=== PATIENT | male | born 1970 | race Caucasian/White ===

== ENCOUNTER 2016-11-09 12:10 | Emergency (ER) | payer OTHER ==
[~2016-11-09] VITALS: Ht 172.7 cm; Wt 100.0 kg
[~2016-11-09 12:10] MED LIST: PRIL20CA PO; ZOFR4TAB3 SL
[2016-11-09 12:12] VITALS: BP 138/80; PULSE 68; RESP 17; TEMP 97.6; O2SAT 98
--- NOTE | 2016-11-09 12:23 | PD ---
Physical Exam Time Seen by Provider: 12:19 Narrative 46yo M c/o LUQ abdomen pain after a choking and coughing episode about a week ago. Abdomen pain subsided and returned on Tuesday. [facility] Reports excessive ETOH use for about 1 year and stopped drinking about 3 weeks ago. Denies N, V, D, fever. Denies blood in urine or stool. No change in urine or stool. VS reviewed. Patient seen in triage. Awaiting bed placement. Data Data Last Documented VS Vital Signs Date Time Temp Pulse Resp B/P Pulse Ox O2 Delivery O2 Flow Rate FiO2 11/09/16 12:12 97.6 68 17 138/80 98 MDM Supervised Visit with RENETTA: Mary Mccarthy November 09, 2016 12:23
[2016-11-09 12:32] VITALS: BP 116/69; PULSE 67; RESP 20; O2SAT 100
--- NOTE | 2016-11-09 12:43 | PD ---
HPI Chief Complaint: Abdominal Pain Time Seen by Provider: 12:28 Travel History International Travel<30 days: No Contact w/Intl Traveler<30days: No Traveled to known affect area: No History of Present Illness HPI Patient comes in complaining of left upper quadrant abdominal pain initially occurred approximately a week ago after a coughing fit. Pain subsided however proximally 3 days ago pain came back. Pain is worse with coughing or sneezing. Describes pain as a dull ache without radiation. Denies anything making it better. Patient states last night when he ate a salad that he noticed the sensation as well. Denies any nausea, vomiting, diarrhea, fevers, chest pain, shortness of breath, back pain, loss or change in bowel or bladder, numbness or tingling anywhere, or direct trauma. PFSH Past Medical History Blood Disorders: No Anxiety: Yes (depression-slight) Cancer: No Cardiovascular Problems: No Cerebrovascular Accident: Yes Diabetes: No Endocrine: No Gastrointestinal Disorders: Yes (STOMACH POLYPS) Genitourinary: No Headaches: Yes Immune Disorder: No Kidney Stones: Yes (2011) Medical other: Yes (?anysm from hit head as child) Musculoskeletal: No Neurologic: No Psychiatric: No Respiratory: No Thyroid Disease: No Ulcer: Yes Tetanus Vaccination: < 5 Years Influenza Vaccination: Yes ?: Not Past Surgical History Abdominal Surgery: Yes (INGUINAL HERNIA BILAT.) AICD: No Appendectomy: Yes Joint Replacement: No Oral Surgery: Yes (TONSILS) Pacemaker: No Tonsillectomy: Yes Other Surgery: Yes Social History Alcohol Use: Yes (RARELY) Tobacco Use: No Substance Use: No Allergies-Medications (Allergen,Severity, Reaction): Coded Allergies: No Known Allergies (Verified , 12/04/12) Reported Meds & Prescriptions Reported Meds & Active Scripts Active Bentyl (Dicyclomine HCl) 10 Mg Cap 10 Mg PO TID PRN Review of Systems Except as stated in HPI: all other systems reviewed are Neg Physical Exam Narrative GENERAL: Well-developed, overly nourished, in no acute distress, and non-ill appearing. SKIN: Focused skin assessment warm and dry. HEAD: Atraumatic. Normocephalic. EYES: Pupils equal and round. EOMI. No scleral icterus. No injection or drainage. ENT: No nasal bleeding or discharge. Mucous membranes pink and moist. NECK: Trachea midline. Supple. No nuclear rigidity. CARDIOVASCULAR: Regular rate and rhythm. No murmur appreciated. RESPIRATORY: No accessory muscle use. No respiratory distress. Clear to auscultation. Breath sounds equal bilaterally. No tenderness or crepitus over left lateral and anterior lower rib cage. GASTROINTESTINAL: Abdomen soft, nondistended. Hepatic and splenic margins not palpable. Normal bowel sounds 4. No pulsatile mass. Patient reports tenderness to palpation to left upper and right upper quadrant of the abdomen. MUSCULOSKELETAL: No obvious deformities. No clubbing. No cyanosis. No edema. Full range of motion. NEUROLOGICAL: Awake and alert. No obvious cranial nerve deficits. Motor grossly within normal limits. Normal speech. PSYCHIATRIC: Appropriate mood and affect; insight and judgment normal. Data Data Last Documented VS Vital Signs Date Time Temp Pulse Resp B/P Pulse Ox O2 Delivery O2 Flow Rate FiO2 11/09/16 14:21 100 Room Air 11/09/16 12:32 67 20 116/69 11/09/16 12:12 97.6 Orders Complete Blood Count With Diff (11/09/16 12:35) Comprehensive Metabolic Panel (11/09/16 12:35) Lipase (11/09/16 12:35) Prothrombin Time / Inr (Pt) (11/09/16 12:35) Act Partial Throm Time (Ptt) (11/09/16 12:35) Urinalysis - C+S If Indicated (11/09/16 12:35) Iv Access Insert/Monitor (11/09/16 12:35) Ecg Monitoring (11/09/16 12:35) Oximetry (11/09/16 12:35) Sodium Chloride 0.9% Flush (Ns Flush) (11/09/16 12:45) Electrocardiogram (11/09/16 12:35) Chest, Single Ap (11/09/16 12:35) Ct Abd/Pel W Iv Contrast(Rout) (11/09/16 13:44) Sodium Chlor 0.9% 1000 Ml Inj (Ns 1000 M (11/09/16 13:45) Iohexol 350 Inj (Omnipaque 350 Inj) (11/09/16 14:06) Labs Laboratory Tests Test 11/09/16 12:35 White Blood Count 6.1 TH/MM3 Red Blood Count 5.19 MIL/MM3 Hemoglobin 15.8 GM/DL Hematocrit 46.6 % Mean Corpuscular Volume 89.7 FL Mean Corpuscular Hemoglobin 30.5 PG Mean Corpuscular Hemoglobin 34.0 % Concent Red Cell Distribution Width 13.1 % Platelet Count 159 TH/MM3 Mean Platelet Volume 9.2 FL Neutrophils (%) (Auto) 62.1 % Lymphocytes (%) (Auto) 24.9 % Monocytes (%) (Auto) 9.1 % Eosinophils (%) (Auto) 3.2 % Basophils (%) (Auto) 0.7 % Neutrophils # (Auto) 3.8 TH/MM3 Lymphocytes # (Auto) 1.5 TH/MM3 Monocytes # (Auto) 0.6 TH/MM3 Eosinophils # (Auto) 0.2 TH/MM3 Basophils # (Auto) 0.0 TH/MM3 CBC Comment DIFF FINAL Differential Comment Prothrombin Time 11.1 SEC Prothromb Time International 1.0 RATIO Ratio Activated Partial 26.9 SEC Thromboplast Time Urine Color YELLOW Urine Turbidity CLEAR Urine pH 7.0 Urine Specific [place] 1.028 Urine Protein TRACE mg/dL Urine Glucose (UA) NEG mg/dL Urine Ketones NEG mg/dL Urine Occult Blood NEG Urine Nitrite NEG Urine Bilirubin NEG Urine Urobilinogen LESS THAN 2.0 MG/DL Urine Leukocyte Esterase NEG Urine RBC 1 /hpf Urine WBC 1 /hpf Urine Squamous Epithelial <1 /hpf Cells Urine Mucus FEW /lpf Microscopic Urinalysis Comment CULT NOT INDICATED Sodium Level 142 MEQ/L Potassium Level 3.8 MEQ/L Chloride Level 106 MEQ/L Carbon Dioxide Level 28.9 MEQ/L Anion Gap 7 MEQ/L Blood Urea Nitrogen 13 MG/DL Creatinine 0.87 MG/DL Estimat Glomerular Filtration 94 ML/MIN Rate Random Glucose 92 MG/DL Calcium Level 9.1 MG/DL Total Bilirubin 0.8 MG/DL Aspartate Amino Transf 19 U/L (AST/SGOT) Alanine Aminotransferase 33 U/L (ALT/SGPT) Alkaline Phosphatase 75 U/L Total Protein 7.5 GM/DL Albumin 4.1 GM/DL Lipase 95 U/L [facility] Medical Decision Making Medical Screen Exam Complete: Yes Emergency Medical Condition: Yes Interpretation(s) EKG reviewed by Dr. Jones, show sinus bradycardia with ventricular rate of 58. No STEMI. Chest x-ray read by the radiologist shows no acute disease. CT the abdomen read by radiologist shows: Punctate nonobstructing left renal calculus. No other acute findings in the abdomen or pelvis. Cecal appendix is visualized and is within normal limits. Differential Diagnosis Costochondritis, pancreatitis, renal colic, renal stone, muscle strain, electrolyte abnormality, gastric ulcer, hiatal hernia, other Narrative Course The patient presented with nonspecific abdominal pain. There was no significant history of vomiting or diarrhea and no fever. The patient appeared comfortable, well hydrated and the abdominal exam was mildly tender without guarding or rebound and no focal tenderness to me. Laboratory and radiologic/CT evaluation revealed no significant abnormalities. There was no evidence of an acute, surgical abdomen at this time. There was no clinical evidence to support appendicitis, bowel obstruction, cholecystitis/cholelithiasis, pancreatitis, perforation of gastric ulcer, colitis, diverticulitis, bacterial peritonitis, obstruction, volvulus, hernial incarceration or strangulation at this time. There was no evidence to support vascular pathology such as AAA, mesenteric ischemia. There was also no clinical evidence by history, exam or risk factors to suggest atypical presentation of cardiac disease such as ACS, AMI or atypical angina. No evidence to suggest genitourinary etiology as well. Clinical picture was discussed with the patient, as well as plan of care. The patient was instructed to follow up with their physician. Abdominal pain warnings were discussed with the patient. The patient is to return if worsens, pain worsens or changes, develop fever, inability to tolerate fluids with or without vomiting, unable to establish follow up or as needed. The patient agrees with plan. Patient in no obvious distress upon re-evaluation. All pertinent laboratory/ Radiology result(s) discussed with patient/family. Discussed patient with Dr. Jones saw and evaluated the patient ordered a CAT scan. Discharge diagnosis per Dr. Jones. Please see his documentation for further details. Any questions/concerns in reference to patient diagnosis/condition discussed and clarified prior to patient's discharge. Reinforced sheer importance of close follow up with patient's primary physician or primary care clinic. Instructed patient to return to ED immediately, if symptoms return/worsen. Pt showed understanding of above instructions. Further instructions and recommendations were detailed in discharge paperwork. Pt ambulated without difficulty out of ED at discharge. Scripts Dicyclomine (Bentyl)10 Mg Cap10 Mg PO TID PRN (Bowel Management) #20 CAP Ref 0 Prov:John Jones MD 11/09/16 Bhavik Contreras November 09, 2016 12:43
[2016-11-09] MEDS ORDERED: SODIUM CHLORIDE 0.9% FLUSH 10 ML FLUSH IV FLUSH PRN (12:45)
[2016-11-09 12:54] LABS: AUTOMATED NEUTROPHIL # 3.8 TH/MM3 (1.8-7.7); BASOPHIL % 0.7 % (0.0-2.0); EOSINOPHIL # 0.2 TH/MM3 (0-0.4); EOSINOPHIL % 3.2 % (0.0-4.0); HEMATOCRIT 46.6 % (39.0-51.0); HEMO FLAGS DIFF FINAL; LYMPH % 24.9 % (9.0-44.0); LYMPHOCYTE # 1.5 TH/MM3 (1.0-4.8); MEAN CELL VOLUME 89.7 FL (80.0-100.0); MEAN CORPUSCULAR HEMOGLOBIN 30.5 PG (27.0-34.0); MONO % 9.1 % (0.0-8.0); NEUT % 62.1 % (16.0-70.0); PLATELET COUNT 159 TH/MM3 (150-450); RED BLOOD COUNT 5.19 MIL/MM3 (4.50-5.90); RED CELL DISTRIBUTION WIDTH 13.1 % (11.6-17.2); WHITE BLOOD COUNT 6.1 TH/MM3 (4.0-11.0)
[2016-11-09 13:01] LABS: BLOOD, URINE NEG (NEG); COMMENT (UR) CULT NOT INDICATED; CULTURE IF INDICATED CULT NOT INDICATED; GLUCOSE,URINE NEG (NEG); KETONE, URINE NEG (NEG); MUCUS URINE FEW /lpf (OCC); NITRITE,URINE NEG (NEG); SQUAMOUS EPITHELIAL CELL URINE <1 /hpf (0-5); URINE COLOR YELLOW (YELLW/STRAW)
[2016-11-09 13:02] LABS: APTT (PATIENT) 26.9 SEC (24.3-30.1); PROTHROMBIN TIME - PATIENT 11.1 SEC (9.8-11.6)
--- NOTE | 2016-11-09 13:08 | RADRPT ---
EXAM DATE/TIME: 11/09/2016 12:57 [facility] COMPARISON: No previous studies available for comparison. INDICATIONS : Left lower chest pain for 1 week. Pain started after coughing and choking episode. MEDICAL HISTORY : None. SURGICAL HISTORY : None. ENCOUNTER: Initial ACUITY: 1 week PAIN SCORE: 3/10 LOCATION: Left chest FINDINGS: A single view of the chest demonstrates the lungs to be symmetrically aerated without evidence of mas s, infiltrate or effusion. The cardiomediastinal contours are unremarkable. Osseous structures are intact. CONCLUSION: No acute disease. Vasile Sweet MD on November 09, 2016 at 13:05 Board Certified Radiologist. This report was verified electronically.
[2016-11-09 13:24] LABS: ALT (GPT) 33 U/L (12-78); ANION GAP 7 MEQ/L (5-15); AST (GOT) 19 U/L (15-37); BICARBONATE 28.9 MEQ/L (21.0-32.0); BLOOD UREA NITROGEN 13 MG/DL (7-18); CHLORIDE 106 MEQ/L (98-107); GLOMERULAR FILTRATION RATE 94 ML/MIN (>89); POTASSIUM 3.8 MEQ/L (3.5-5.1); SODIUM (NA) 142 MEQ/L (136-145)
[2016-11-09 13:26] LABS: ALKALINE PHOSPHATASE 75 U/L (45-117); TOTAL BILIRUBIN ADULT 0.8 MG/DL (0.2-1.0)
[2016-11-09] MEDS ORDERED: SODIUM CHLOR 0.9% 1000 ML INJ 1,000 ML IV ONE (13:45)
[2016-11-09] MEDS ORDERED: IOHEXOL 350 MG/ML 10 ML VIAL (for RAD DIAG) IV ONE (14:06)
[2016-11-09 14:21] VITALS: O2SAT 100
--- NOTE | 2016-11-09 14:41 | RADRPT ---
EXAM DATE/TIME: 11/09/2016 14:03 [facility] COMPARISON: CT ABDOMEN & PELVIS W/O CONTRAST, April 19, 2011, 8:38. INDICATIONS : Abdomen pain in left upper quadrant. IV CONTRAST: 75 cc Omnipaque 350 (iohexol) IV ORAL CONTRAST: No oral contrast ingested. RADIATION DOSE: 10.09 CTDIvol (mGy) MEDICAL HISTORY : CVA, SURGICAL HISTORY : Appendectomy. ENCOUNTER: Initial ACUITY: 3 days PAIN SCALE: 3/10 LOCATION: Left upper quadrant TECHNIQUE: Volumetric scanning of the abdomen and pelvis was performed. Using automated exposure control and ad justment of the mA and/or kV according to patient size, radiation dose was kept as low as reasonably achievable to obtain optimal diagnostic quality images. FINDINGS: LOWER LUNGS: The visualized lower lungs are clear. LIVER: Homogeneous density without lesion. There is no dilation of the biliary tree. No calcified gallston es. SPLEEN: Normal size without lesion. PANCREAS: Within normal limits. KIDNEYS: 2 mm nonobstructing calculus in the lower pole of the left kidney. No ureteral calculi. No hydronephr osis. ADRENAL GLANDS: Within normal limits. VASCULAR: There is no aortic aneurysm. BOWEL/MESENTERY: No evidence of bowel dilatation. No free air or free fluid. Appendix within normal limits. ABDOMINAL WALL: Within normal limits. RETROPERITONEUM: There is no lymphadenopathy. BLADDER: No wall thickening or mass. REPRODUCTIVE: Within normal limits. INGUINAL: There is no lymphadenopathy or hernia. MUSCULOSKELETAL: Within normal limits for patient age. CONCLUSION: Punctate nonobstructing left renal calculus. No other acute findings in the abdomen or pelvis. Cecal appendix is visualized and is within normal limits. Henrik Graves MD on November 09, 2016 at 14:34 Board Certified Radiologist. This report was verified electronically.
[2016-11-09] MEDS ORDERED: DICY10 PO (14:43)
--- NOTE | 2016-11-09 14:45 | PD ---
Data Data Last Documented VS Vital Signs Date Time Temp Pulse Resp B/P Pulse Ox O2 Delivery O2 Flow Rate FiO2 11/09/16 14:21 100 Room Air 11/09/16 12:32 67 20 116/69 11/09/16 12:12 97.6 Orders Complete Blood Count With Diff (11/09/16 12:35) Comprehensive Metabolic Panel (11/09/16 12:35) Lipase (11/09/16 12:35) Prothrombin Time / Inr (Pt) (11/09/16 12:35) Act Partial Throm Time (Ptt) (11/09/16 12:35) Urinalysis - C+S If Indicated (11/09/16 12:35) Iv Access Insert/Monitor (11/09/16 12:35) Ecg Monitoring (11/09/16 12:35) Oximetry (11/09/16 12:35) Sodium Chloride 0.9% Flush (Ns Flush) (11/09/16 12:45) Electrocardiogram (11/09/16 12:35) Chest, Single Ap (11/09/16 12:35) Ct Abd/Pel W Iv Contrast(Rout) (11/09/16 13:44) Sodium Chlor 0.9% 1000 Ml Inj (Ns 1000 M (11/09/16 13:45) Iohexol 350 Inj (Omnipaque 350 Inj) (11/09/16 14:06) Labs Laboratory Tests Test 11/09/16 12:35 White Blood Count 6.1 TH/MM3 Red Blood Count 5.19 MIL/MM3 Hemoglobin 15.8 GM/DL Hematocrit 46.6 % Mean Corpuscular Volume 89.7 FL Mean Corpuscular Hemoglobin 30.5 PG Mean Corpuscular Hemoglobin 34.0 % Concent Red Cell Distribution Width 13.1 % Platelet Count 159 TH/MM3 Mean Platelet Volume 9.2 FL Neutrophils (%) (Auto) 62.1 % Lymphocytes (%) (Auto) 24.9 % Monocytes (%) (Auto) 9.1 % Eosinophils (%) (Auto) 3.2 % Basophils (%) (Auto) 0.7 % Neutrophils # (Auto) 3.8 TH/MM3 Lymphocytes # (Auto) 1.5 TH/MM3 Monocytes # (Auto) 0.6 TH/MM3 Eosinophils # (Auto) 0.2 TH/MM3 Basophils # (Auto) 0.0 TH/MM3 CBC Comment DIFF FINAL Differential Comment Prothrombin Time 11.1 SEC Prothromb Time International 1.0 RATIO Ratio Activated Partial 26.9 SEC Thromboplast Time Urine Color YELLOW Urine Turbidity CLEAR Urine pH 7.0 Urine Specific [place] 1.028 Urine Protein TRACE mg/dL Urine Glucose (UA) NEG mg/dL Urine Ketones NEG mg/dL Urine Occult Blood NEG Urine Nitrite NEG Urine Bilirubin NEG Urine Urobilinogen LESS THAN 2.0 MG/DL Urine Leukocyte Esterase NEG Urine RBC 1 /hpf Urine WBC 1 /hpf Urine Squamous Epithelial <1 /hpf Cells Urine Mucus FEW /lpf Microscopic Urinalysis Comment CULT NOT INDICATED Sodium Level 142 MEQ/L Potassium Level 3.8 MEQ/L Chloride Level 106 MEQ/L Carbon Dioxide Level 28.9 MEQ/L Anion Gap 7 MEQ/L Blood Urea Nitrogen 13 MG/DL Creatinine 0.87 MG/DL Estimat Glomerular Filtration 94 ML/MIN Rate Random Glucose 92 MG/DL Calcium Level 9.1 MG/DL Total Bilirubin 0.8 MG/DL Aspartate Amino Transf 19 U/L (AST/SGOT) Alanine Aminotransferase 33 U/L (ALT/SGPT) Alkaline Phosphatase 75 U/L Total Protein 7.5 GM/DL Albumin 4.1 GM/DL Lipase 95 U/L [facility] Medical Record Reviewed: Yes Supervised Visit with RENETTA: Yes Narrative Course I, Dr. Jones, have reviewed the advance practice practitioner's documentation and am in agreement, met with the patient face to face, made the diagnosis, and the medical decision making was done by me. *My assessment and Findings: CBC & BMP Diagram 11/09/16 12:35 LFTs normal Lipase normal UA: No UTI Coags normal CT ab/pel: no acute pathology to account for patient's pain The patient is resting comfortably and feels better, is alert and in no distress. The patients results and examination findings were discussed. The repeat examination is unremarkable and benign. The history, exam, diagnostic testing, and current condition do not suggest any significant pathology to warrant further testing, continued ED treatment, admission, or surgical evaluation at this point. The vital signs have been stable. The patient does not have uncontrollable pain, intractable vomiting, or other significant symptoms. The patient's condition is stable and appropriate for discharge. The patient will pursue further outpatient evaluation with a primary care physician or other designated or consulting physician as indicated in the discharge instructions. The patient expressed understanding and was agreeable with this plan. Diagnosis Primary Impression: Abdominal pain Qualified Code: R10.12 - Left upper quadrant pain Referrals: Marta Antunez MD [address] Out Patient Clinic [facility] 2 days Additional Instruction: You have a choice when it comes to health care, and we are glad that you chose [facility]. Hopefully, we have met your expectations on today's visit. You are welcome to return to [facility] at any time, as we are committed to meeting the health care needs of our community. Med/Other Pt SpecificInfo: Prescription(s) given Scripts Dicyclomine (Bentyl)10 Mg Cap10 Mg PO TID PRN (Bowel Management) #20 CAP Ref 0 Prov:John Jones MD 11/09/16 Disposition: 01 DISCHARGE HOME Condition: Stable John Jones MD November 09, 2016 14:45 Prov:John Jones MD 11/09/16 Disposition: 01 DISCHARGE HOME Condition: John Zafar MD November 09, 2016 14:45
--- NOTE | 2016-11-10 06:13 | EKG ---
Date Performed: 11/09/2016 Time Performed: 13:05:02 PTAGE: 46 years EKG: SINUS BRADYCARDIA MARKED LEFT AXIS DEVIATION POSSIBLE LATERAL MYOCARDIAL INFARCTION ABNORMA L ECG Compared to prior tracing no significant change DOCTOR: Zaire Quach Interpretating Date/Time 11/10/2016 06:12:54
== END 2016-11-09 17:01 | disposition home or self-care (01) ==
LOC: NEPE 12:10
DX: R10.12 Left upper quadrant pain (principal); R94.31 Abnormal electrocardiogram [ECG] [EKG]; Z87.442 Personal history of urinary calculi; Z86.73 Personal history of transient ischemic attack (TIA), and cerebral infarction without residual deficits
CPT/HCPCS: 71010; 74177; 80053; 81001; 83690; 85025; 85610; 85730; 93005; 99284; J7030; Q9967

== ENCOUNTER 2017-04-30 08:05 | Emergency (ER) | payer OTHER ==
[~2017-04-30] VITALS: Ht 172.7 cm; Wt 90.0 kg
[~2017-04-30 08:05] MED LIST changes: +DICY10 PO; -PRIL20CA PO; -ZOFR4TAB3 SL
[2017-04-30 08:07] VITALS: BP 123/74; PULSE 73; RESP 15; TEMP 98.7; O2SAT 99
[2017-04-30] MEDS ORDERED: BACT800T5 PO (08:27)
--- NOTE | 2017-04-30 08:36 | PD ---
HPI Chief Complaint: Skin Problem Time Seen by Provider: 08:20 Travel History International Travel<30 days: No Contact w/Intl Traveler<30days: No Traveled to known affect area: No History of Present Illness HPI 46-year-old male presents to the emergency room for evaluation of right lower extremity redness and warmth that started yesterday. Patient states he has been having issues with current right lower extremity cellulitis for the past 6 months. He has been evaluated and worked up at the OR multiple times including recent ultrasounds which are always negative. States whenever he gets these symptoms, he takes antibiotics and they resolve. He has been on 3 antibiotics in the past 6 months for this. Reports subjective fever yesterday but did not actually take his temperature. He took Aleve yesterday and this morning. Denies any pain. Denies any other symptoms and has been feeling well otherwise. PFSH Past Medical History Blood Disorders: No Anxiety: Yes (depression-slight) Cancer: No Cardiovascular Problems: No Cerebrovascular Accident: Yes (???) Diabetes: No Endocrine: No Gastrointestinal Disorders: Yes (STOMACH POLYPS) Genitourinary: No Headaches: Yes Immune Disorder: No Kidney Stones: Yes (2011) Musculoskeletal: No Neurologic: No Psychiatric: No Reproductive: No Respiratory: No Thyroid Disease: No Ulcer: Yes Influenza Vaccination: No ?: Not Past Surgical History Abdominal Surgery: Yes (INGUINAL HERNIA BILAT.) AICD: No Appendectomy: Yes Insulin Pump: No Joint Replacement: No Oral Surgery: Yes (TONSILS) Pacemaker: No Tonsillectomy: Yes Other Surgery: Yes Social History Alcohol Use: Yes (RARELY) Tobacco Use: No Substance Use: Yes (medical THC daily) Allergies-Medications (Allergen,Severity, Reaction): Coded Allergies: No Known Allergies (Verified , 12/04/12) Reported Meds & Prescriptions Reported Meds & Active Scripts Active Review of Systems Except as stated in HPI: all other systems reviewed are Neg Physical Exam Narrative GENERAL: Well-nourished, well-developed male in no acute distress. Afebrile. Ambulatory. SKIN: Focused skin assessment warm/dry. Mild, non-circumferential, not well circumscribed erythema of the right lower extremity. Mild increased warmth. HEAD: Normocephalic. EYES: No scleral icterus. No injection or drainage. NECK: Supple, trachea midline. No JVD or lymphadenopathy. CARDIOVASCULAR: Regular rate and rhythm without murmurs, gallops, or rubs. RESPIRATORY: Breath sounds equal bilaterally. No accessory muscle use. MUSCULOSKELETAL: No cyanosis. No obvious edema. 2+ dorsalis pedis pulse. Full range motion. No tenderness to palpation of the right leg. Data Data Last Documented VS Vital Signs Date Time Temp Pulse Resp B/P (MAP) Pulse Ox O2 Delivery O2 Flow Rate FiO2 04/30/17 08:16 80 18 04/30/17 08:07 98.7 123/74 (90) 99 MDM Medical Decision Making Medical Screen Exam Complete: Yes Emergency Medical Condition: Yes Medical Record Reviewed: Yes Differential Diagnosis Cellulitis, DVT, venous stasis Narrative Course 46-year-old male presents to the emergency room for evaluation of recurrent cellulitis to the right lower extremity that started yesterday. States he has been on antibiotics 3 times in the past 6 months for this. Antibiotics typically resolve his symptoms. He denies any pain and otherwise feels well. He has also had multiple workups and recent ultrasound at the OR which has all been negative. History of subjective fever last night. Patient is afebrile here. Right lower extremity is neurovascularly intact with 2+ dorsalis pedis pulse. He has full range of motion. Difficult exam is unimpressive. Patient has mild, non-circumferential, non-circumscribed erythema of the right lower extremity with mild increased warmth. Patient will be treated empirically for Bactrim and told to follow-up at the OR for evaluation of recurrent infection. Told to return for the emergency room for worsening symptoms. He understands and agrees to plan. Diagnosis Primary Impression: Cellulitis of right lower extremity without foot Referrals: Primary Care Physician Additional Instructions: Rest and drink plenty of fluids. Take Bactrim as directed, until gone. Follow up with a primary care physician. Return to emergency room for worsening symptoms, as discussed. Med/Other Pt SpecificInfo: Prescription(s) given Scripts Sulfamethoxazole-Trimethoprim (Bactrim DS) 800-160 Mg Tab 1 TAB PO BID for Infection, #20 TAB 0 Refills Prov: Elías Alfaro MD 04/30/17 Disposition: 01 DISCHARGE HOME Condition: Stable Laverne Avila Apr 30, 2017 08:36
== END 2017-04-30 08:45 | disposition home or self-care (01) ==
LOC: NEPD 08:05
DX: L03.115 Cellulitis of right lower limb (principal)
CPT/HCPCS: 99283

== ENCOUNTER 2017-09-06 15:54 | Emergency (ER) | payer OTHER ==
[~2017-09-06 15:54] MED LIST changes: +BACT800T5 PO; -DICY10 PO
[2017-09-06 16:14] VITALS: BP 144/88; PULSE 57; RESP 14; TEMP 97.9; O2SAT 99
[2017-09-06 17:44] LABS: AUTOMATED NEUTROPHIL # 3.5 TH/MM3 (1.8-7.7); BASOPHIL % 0.6 % (0.0-2.0); EOSINOPHIL # 0.1 TH/MM3 (0-0.4); EOSINOPHIL % 2.7 % (0.0-4.0); HEMOGLOBIN 15.6 GM/DL (13.0-17.0); LYMPH % 24.1 % (9.0-44.0); LYMPHOCYTE # 1.3 TH/MM3 (1.0-4.8); MEAN CELL VOLUME 89.3 FL (80.0-100.0); MEAN CORPUSCULAR HEMOGLOBIN 30.9 PG (27.0-34.0); MEAN CORPUSCULAR HGB CONC 34.6 % (32.0-36.0); MONO % 8.2 % (0.0-8.0); MONOCYTE # 0.4 TH/MM3 (0-0.9); NEUT % 64.4 % (16.0-70.0); PLATELET COUNT 184 TH/MM3 (150-450); RED BLOOD COUNT 5.04 MIL/MM3 (4.50-5.90); RED CELL DISTRIBUTION WIDTH 13.6 % (11.6-17.2); WHITE BLOOD COUNT 5.4 TH/MM3 (4.0-11.0)
[2017-09-06 17:59] LABS: AMORPHOUS SEDIMENT, URINE RARE; BILIRUBIN, URINE NEG (NEG); BLOOD, URINE NEG (NEG); GLUCOSE,URINE NEG (NEG); KETONE, URINE NEG (NEG); MUCUS URINE FEW /lpf (OCC); NITRITE,URINE NEG (NEG); PH, URINE 6.5 (5.0-8.5); URINE COLOR YELLOW (YELLW/STRAW); URINE LEUKOCYTE ESTERASE NEG (NEG)
[2017-09-06 18:02] LABS: BICARBONATE 27.4 MEQ/L (21.0-32.0); CALCIUM 8.8 MG/DL (8.5-10.1); CREATININE 0.88 MG/DL (0.60-1.30)
--- NOTE | 2017-09-06 18:03 | RADRPT ---
EXAM DATE/TIME: 09/06/2017 17:22 [facility] COMPARISON: No previous studies available for comparison. INDICATIONS : Testicular pain. MEDICAL HISTORY : Stroke. Ulcer. Polyps. Kidney stones. Anxiety. Depression. SURGICAL HISTORY : Tonsillectomy. Appendectomy.Inguinal hernia repair. ENCOUNTER: Initial ACUITY: 3 days PAIN SCORE: 10/10 LOCATION: Bilateral testicles. MEASUREMENTS: RIGHT TESTICLE: 5.2 x 3.8 x 2.1cm SIZE (L x W x H) NATURE LOCATION LEFT TESTICLE: 5.6 x 2.6 x 2.2cm FINDINGS: RIGHT TESTICLE: Homogeneous echotexture without intra or extratesticular mass. Blood flow is symmetric and within no rmal limits. No hydrocele or varicocele. Epididymis is within normal limits for size. There is some increased vascularity to the epididymis.. LEFT TESTICLE: Homogeneous echotexture without intra or extratesticular mass. Blood flow is symmetric and within no rmal limits. No hydrocele or varicocele. Epididymis is within normal limits for size. There is some increased vascularity the epididymis. SCROTUM: Within normal limits. CONCLUSION: 1. Both testicles are within normal limits. 2. Mild increased vascularity to the epididymides. This could indicate some epididymitis. Recommend c orrelation with patient's physical exam. David Medina MD on September 06, 2017 at 18:00 Board Certified Radiologist. This report was verified electronically.
[2017-09-06] MEDS ORDERED: KETOROLAC TROMETHAMINE 60 MG/2 ML (IM) VIAL IM ONE (18:45)
[2017-09-06] MEDS ORDERED: IBUP1TAB7 PO (18:46)
[2017-09-06] MEDS ORDERED: NORC5TAB PO (18:46)
--- NOTE | 2017-09-06 18:46 | PD ---
HPI Chief Complaint: Complaint Time Seen by Provider: 16:13 Travel History International Travel<30 days: No Contact w/Intl Traveler<30days: No Traveled to known affect area: No History of Present Illness HPI 47-year-old male presents emergency department for evaluation of testicular pain. Patient states that he had moved some mulch over the weekend and initially thought he had pulled a groin muscle until the pain progressed in became isolated to his testicles. He states he feels like he is being "kicked in his balls." 10 out of 10, severe, sharp. Pain is alleviated by no movement. Patient went to his primary care provider at the [place] today who did examine him and advised to come to the emergency department for further evaluation of this. Patient denies any obvious trauma. Denies any urinary symptoms. Denies any penile drainage. No fever or chills. He has no other symptoms to report. PFSH Past Medical History Blood Disorders: No Anxiety: Yes (depression-slight) Cancer: No Cardiovascular Problems: No Cerebrovascular Accident: Yes (???) Diabetes: No Endocrine: No Gastrointestinal Disorders: Yes (STOMACH POLYPS) Genitourinary: No Headaches: Yes Immune Disorder: No Kidney Stones: Yes (2011) Musculoskeletal: No Neurologic: No Psychiatric: No Reproductive: No Respiratory: No Thyroid Disease: No Ulcer: Yes Past Surgical History Abdominal Surgery: Yes (INGUINAL HERNIA BILAT.) AICD: No Appendectomy: Yes Insulin Pump: No Joint Replacement: No Oral Surgery: Yes (TONSILS) Pacemaker: No Tonsillectomy: Yes Other Surgery: Yes Social History Alcohol Use: Yes (RARELY) Tobacco Use: No Substance Use: Yes (medical THC daily) Allergies-Medications (Allergen,Severity, Reaction): Coded Allergies: No Known Allergies (Verified Adverse Reaction, Unknown, 09/06/17) Reported Meds & Prescriptions Reported Meds & Active Scripts Active Ibuprofen 800 Mg Tab 800 Mg PO Q8H PRN Valentines (Hydrocodone-Acetaminophen) 5 Mg-325 Mg Tab 1 Tab PO Q6H PRN Review of Systems Except as stated in HPI: all other systems reviewed are Neg Physical Exam Narrative GENERAL: Well-nourished male patient, in no acute distress. SKIN: Focused skin assessment warm/dry. HEAD: Atraumatic. Normocephalic. EYES: Pupils equal and round. No scleral icterus. No injection or drainage. ENT: No nasal bleeding or discharge. Mucous membranes pink and moist. NECK: Trachea midline. No JVD. CARDIOVASCULAR: Regular rate and rhythm. No murmur appreciated. RESPIRATORY: No accessory muscle use. Clear to auscultation. Breath sounds equal bilaterally. GASTROINTESTINAL: Abdomen soft, non-tender, nondistended. No Rebound tenderness or guarding. Hepatic and splenic margins not palpable. MUSCULOSKELETAL: No obvious deformities. No clubbing. No cyanosis. No edema. NEUROLOGICAL: Awake and alert. No obvious cranial nerve deficits. Motor grossly within normal limits. Normal speech. PSYCHIATRIC: Appropriate mood and affect; insight and judgment normal. Data Data Last Documented VS Vital Signs Date Time Temp Pulse Resp B/P (MAP) Pulse Ox O2 Delivery O2 Flow Rate FiO2 09/06/17 16:14 97.9 57 14 144/88 (106) 99 Orders Orders Complete Blood Count With Diff (09/06/17 16:17) Basic Metabolic Panel (Bmp) (09/06/17 16:17) Urinalysis - C+S If Indicated (09/06/17 16:17) Gc And Chlamydia Pcr (09/06/17 16:17) Us Testicles W Doppler (09/06/17 ) Ketorolac Inj (Toradol Inj) (09/06/17 18:45) Labs Laboratory Tests Test 09/06/17 17:07 09/06/17 17:15 White Blood Count 5.4 TH/MM3 Red Blood Count 5.04 MIL/MM3 Hemoglobin 15.6 GM/DL Hematocrit 45.0 % Mean Corpuscular Volume 89.3 FL Mean Corpuscular Hemoglobin 30.9 PG Mean Corpuscular Hemoglobin Concent 34.6 % Red Cell Distribution Width 13.6 % Platelet Count 184 TH/MM3 Mean Platelet Volume 9.0 FL Neutrophils (%) (Auto) 64.4 % Lymphocytes (%) (Auto) 24.1 % Monocytes (%) (Auto) 8.2 % Eosinophils (%) (Auto) 2.7 % Basophils (%) (Auto) 0.6 % Neutrophils # (Auto) 3.5 TH/MM3 Lymphocytes # (Auto) 1.3 TH/MM3 Monocytes # (Auto) 0.4 TH/MM3 Eosinophils # (Auto) 0.1 TH/MM3 Basophils # (Auto) 0.0 TH/MM3 CBC Comment DIFF FINAL Differential Comment Blood Urea Nitrogen 12 MG/DL Creatinine 0.88 MG/DL Random Glucose 90 MG/DL Calcium Level 8.8 MG/DL Sodium Level 140 MEQ/L Potassium Level 3.8 MEQ/L Chloride Level 107 MEQ/L Carbon Dioxide Level 27.4 MEQ/L Anion Gap 6 MEQ/L Estimat Glomerular Filtration Rate 92 ML/MIN Urine Color YELLOW Urine Turbidity CLEAR Urine pH 6.5 Urine Specific [place] 1.021 Urine Protein NEG mg/dL Urine Glucose (UA) NEG mg/dL Urine Ketones NEG mg/dL Urine Occult Blood NEG Urine Nitrite NEG Urine Bilirubin NEG Urine Urobilinogen LESS THAN 2.0 MG/DL Urine Leukocyte Esterase NEG Urine RBC 1 /hpf Urine WBC 1 /hpf Urine Amorphous Sediment RARE Urine Mucus FEW /lpf Microscopic Urinalysis Comment CULT NOT INDICATED Chlamydia trachomatis DNA (PCR) NOT DETECTED Neisseria gonorrhoeae DNA (PCR) NOT DETECTED MDM Medical Decision Making Medical Screen Exam Complete: Yes Emergency Medical Condition: Yes Medical Record Reviewed: Yes Differential Diagnosis Cystitis versus urethritis versus epididymitis versus hernia versus torsion Narrative Course 47-year-old male presents to the emergency department for evaluation of testicular pain. Patient appears uncomfortable. Workup is initiated in triage. Patient has been treated for pain. Workup is complete and reviewed by myself. Laboratory Tests Test 09/06/17 17:07 09/06/17 17:15 White Blood Count 5.4 TH/MM3 Red Blood Count 5.04 MIL/MM3 Hemoglobin 15.6 GM/DL Hematocrit 45.0 % Mean Corpuscular Volume 89.3 FL Mean Corpuscular Hemoglobin 30.9 PG Mean Corpuscular Hemoglobin Concent 34.6 % Red Cell Distribution Width 13.6 % Platelet Count 184 TH/MM3 Mean Platelet Volume 9.0 FL Neutrophils (%) (Auto) 64.4 % Lymphocytes (%) (Auto) 24.1 % Monocytes (%) (Auto) 8.2 % Eosinophils (%) (Auto) 2.7 % Basophils (%) (Auto) 0.6 % Neutrophils # (Auto) 3.5 TH/MM3 Lymphocytes # (Auto) 1.3 TH/MM3 Monocytes # (Auto) 0.4 TH/MM3 Eosinophils # (Auto) 0.1 TH/MM3 Basophils # (Auto) 0.0 TH/MM3 CBC Comment DIFF FINAL Differential Comment Blood Urea Nitrogen 12 MG/DL Creatinine 0.88 MG/DL Random Glucose 90 MG/DL Calcium Level 8.8 MG/DL Sodium Level 140 MEQ/L Potassium Level 3.8 MEQ/L Chloride Level 107 MEQ/L Carbon Dioxide Level 27.4 MEQ/L Anion Gap 6 MEQ/L Estimat Glomerular Filtration Rate 92 ML/MIN Urine Color YELLOW Urine Turbidity CLEAR Urine pH 6.5 Urine Specific [place] 1.021 Urine Protein NEG mg/dL Urine Glucose (UA) NEG mg/dL Urine Ketones NEG mg/dL Urine Occult Blood NEG Urine Nitrite NEG Urine Bilirubin NEG Urine Urobilinogen LESS THAN 2.0 MG/DL Urine Leukocyte Esterase NEG Urine RBC 1 /hpf Urine WBC 1 /hpf Urine Amorphous Sediment RARE Urine Mucus FEW /lpf Microscopic Urinalysis Comment CULT NOT INDICATED Chlamydia trachomatis DNA (PCR) NOT DETECTED Neisseria gonorrhoeae DNA (PCR) NOT DETECTED Last Impressions Scrotum Ultrasound 09/06/17 0000 Signed Impressions: Service Date/Time: Wednesday, September 06, 2017 17:22 - CONCLUSION: 1. Both testicles are within normal limits. 2. Mild increased vascularity to the epididymides. This could indicate some epididymitis. Recommend correlation with patient's physical exam. David Medina MD She is already on Levaquin. He'll be given additional pain control for home. I have encouraged to follow-up with a primary care provider and return immediately with any acute worsening symptoms. Diagnosis Primary Impression: Acute epididymitis Referrals: Primary Care Physician Patient Instructions: Epididymitis (ED), General Instructions Departure Forms: Tests/Procedures, Work Release Enter return to work date: Sep 12, 2017 Additional Instructions: FOLLOW UP WITH YOUR PRIMARY CARE PROVIDER CONTINUE ABX PRESCRIBED BY YOUR PCP RETURN TO ED WITH ACUTE WORSENING OF SYMPTOMS Med/Other Pt SpecificInfo: Prescription(s) given Scripts Ibuprofen (Ibuprofen) 800 Mg Tab 800 MG PO Q8H Y for PAIN SCALE 1 TO 10, #30 TAB 0 Refills Prov: Shauna Escalona 09/06/17 Hydrocodone-Acetaminophen (Valentines) 5 Mg-325 Mg Tab 1 TAB PO Q6H Y for PAIN GREATER THAN 5, #15 TAB 0 Refills Prov: Shauna Escalona 09/06/17 Disposition: 01 DISCHARGE HOME Condition: Stable Shauna Escalona Sep 06, 2017 18:46
== END 2017-09-06 19:06 | disposition home or self-care (01) ==
LOC: NED 15:54
DX: N45.1 Epididymitis (principal); F41.9 Anxiety disorder, unspecified; F32.9 Major depressive disorder, single episode, unspecified; Z86.73 Personal history of transient ischemic attack (TIA), and cerebral infarction without residual deficits; Z87.442 Personal history of urinary calculi
CPT/HCPCS: 76870; 80048; 81001; 85025; 87491; 87591; 93975; 96372; 99284; J1885